=== PATIENT | female | born 1985 | race Caucasian/White ===

== ENCOUNTER 2017-11-08 11:00 | Outpatient (RCR) | payer OTHER, SELFPAY | END 2017-11-08 23:59 | LOC: PT 11:00 | PROVIDERS: Visit Provider Orthopaedic Surgery | DX: S42.409A Unspecified fracture of lower end of unspecified humerus, initial encounter for closed fracture (principal) | CPT/HCPCS: 97010; 97014; 97140; 97161; G0283 ==

== ENCOUNTER 2018-01-24 10:00 | Outpatient (RCR) | payer OTHER, SELFPAY | END 2018-01-24 10:01 | disposition home or self-care (01) | LOC: PT 10:00 | PROVIDERS: Visit Provider Orthopaedic Surgery | DX: S42.401A Unspecified fracture of lower end of right humerus, initial encounter for closed fracture (principal) | CPT/HCPCS: 97010; 97014; 97033; 97110; 97140; 97164; G0283 ==

== ENCOUNTER → 2018-10-12 10:27 | Outpatient (CLI) | payer OTHER, SELFPAY ==
--- NOTE | 2018-10-12 10:37 | XR_ITS ---
XR forearm RT 2V, XR elbow RT min 3V XR hand RT min 3V, XR wrist RT min 3V, Ordering Physician: Sandi Flores Patient Age: 33 years: Female HISTORY: ITS.REASON: RUE PAIN,H/O ELBOW FX TECHNIQUE: Right forearm:: AP lateral Right elbow: AP lateral and oblique Right wrist: AP lateral and oblique Right hand: AP lateral and oblique COMPARISON :None ======= RIGHT ELBOW : Previous ORIF at elbow. Metallic plate applied to the proximal ulna to secured by 5 screws. ( 2 longer screws seen proximally past the olecranon just beneath the the elbow joint.). There is good position and good healing at the proximal ulna. There is also metallic radial head prosthesis placed. Good position. No fracture. The very subtle lucency at its base along the peg noted may benefit follow-up and correlation to any prior outside studies to exclude some early loosening. However may merely reflect some mild resorption immediate adjacent to the prosthesis.. If there if pain here focal at radial head would suggest slight recommend follow-up with orthopedics Upper normal joint fluid at the elbow. Fat pads are within normal limits on lateral elbow image. 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 ======= RIGHT FOREARM: The midshaft and distal radius and ulna intact. Unremarkable. ======= RIGHT WRIST: Right wrist intact with no fracture. Bones well mineralized. No erosions. Joint spaces well-maintained. Carpals satisfactory relationships. Normal fat pad anterior to the wrist. ======= RIGHT HAND Right hand is intact with no fracture nor dislocation. Normal osseous relationships. Bones well mineralized.. Joint spaces well-maintained. No erosions IMPRESSION: ... 1. Right Hand and Right Wrist appears satisfactory, normal & unremarkable. 2. Right elbow. ORIF. ... Metallic plate proximal ulna & with metallic radial head prosthesis. .... Subtle nonspecific lucency about short medullary peg of this radial head prosthesis is noted... Warrants correlation & if focal pain in this region would suggest orthopedic follow-up. ... Suggestion mild early changes at the right elbow joint, most evident lateral 3.. Remainder Right forearm otherwise unremarkable
== END ==
PROVIDERS: PCP Nurse Practitioner Family; Visit Provider Nurse Practitioner Family
DX: S42.401D Unspecified fracture of lower end of right humerus, subsequent encounter for fracture with routine healing; M79.601 Pain in right arm
CPT/HCPCS: 73080; 73090; 73110; 73130

== ENCOUNTER → 2020-10-10 13:41 | Outpatient (CLI) | payer MEDICAID, SELFPAY ==
[2020-10-14 17:59] LABS: Varicella Zoster IgG 287 index (Immune >165)
== END ==
PROVIDERS: Visit Provider Nurse Practitioner Family
DX: Z01.84 Encounter for antibody response examination
CPT/HCPCS: 36415; 86787

== ENCOUNTER 2021-07-04 19:54 | Emergency (ER) | payer MEDICAID, SELFPAY ==
[2021-07-04 21:42] VITALS: BP 146/94; PULSE 74; RESP 12; TEMP 36.6; O2SAT 98; BMI 35.2
--- NOTE | 2021-07-04 22:04 | HMH.EDUTC ---
[facility] [place] Clinical Impression: Bronchitis, Exposure to COVID-19 virus, Viral syndrome Disposition: Home, Self-Care Condition on Discharge: Good Instructions: DI for Acute Bronchitis, DI for COVID-19 (Suspected or Confirmed ), Preventing the Spread of Coronavirus Discharge Instructions Additional Instructions: Drink plenty of fluids. Take tylenol or ibuprofen for pain or fever. Take the medications as directed. Follow up with your regular doctor. GO TO THE ER FOR ANY WORSENING SYMPTOMS Quarantine until you know the results of your covid-19 test. If it is positive, the health department should call you and give you further instructions about your length of Quarantine and other things. Notify your school or workplace of your results and follow their instructions regarding return to work/school. Don't start the oral steroids until tomorrow, since you had the shot here today. Prescriptions: guaiFENesin [Mucinex 600mg tablet] 1 - 2 tab PO BIDP PRN #30 tab.er.12h PRN Reason: Congestion Transmission Status: Received by [facility] predniSONE [Prednisone 20mg Tab] 20 mg PO BID 4 Days #8 tab Transmission Status: Received by [facility] Azithromycin [Z-Francisco J 250mg Tab*] 250 mg PO UD DOSE PK #6 tab Transmission Status: Received by [facility] Referrals: Nohelia Queen APRN [Primary Care Provider] - Time of Disposition: 22:09 Medical Decision Making - Medical Records Medical records reviewed: No: I reviewed the patient's medical records. - Zachery Inquiry Pt receiving controlled substance: No Vital Signs: 07/04/21 21:42 07/04/21 22:10 Temperature 98 F 98 F Temperature Source Oral Pulse Rate 78 Pulse Rate [Left] 74 Respiratory Rate 12 18 Blood Pressure 140/88 Blood Pressure [Right Arm] 146/94 H Blood Pressure Mean [Right Arm] 111 02 Sat by Pulse Oximetry 98 Orders (Tests/Meds): ORDERS Category Date Time Status Covid-19 Nasal PCR ([facility]) Routine Lab 07/04/21 21:45 Received [facility] [place] - General Stated complaint: Cover test,with symsptoms Time Seen by Provider: 07/04/21 22:04 Mode of Arrival: Ambulatory Source of Information: Patient Limitations: No Limitations Description of Symptoms (Recalled from Triage Doc. by RN): PT C/O CHEST CONGESTION, COUGH AND SWOLLEN LYMPH NODES HEENT Symptoms (Recalled from RN notes): No Resp Symptoms (Recalled from RN notes): Yes (CHEST CONGESTION AND COUGH) Skin Symptoms (Recalled from RN notes): No MS Symptoms (Recalled from RN notes): No Functional Status (Recalled from RN notes): NA - History of Present Illness Provider Complaint: She c/o sore throat, cough and feeling bad for the past 3 days. 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 She has similar symptoms as her son at this time. - Related Data Previous Rx's Medication Instructions Recorded Benzonatate [Tessalon Perle 100mg 100 mg PO TID PRN #30 cap 07/12/18 Cap] Fluticasone Propionate [Flonase 2 spr NS DAILY #1 bottle 07/12/18 50mcg nasal spray 16gm] Azithromycin [Z-Francisco J 250mg Tab*] 250 mg PO UD DOSE PK #6 tab 07/04/21 guaiFENesin [Mucinex 600mg tablet] 1 - 2 tab PO BIDP PRN #30 07/04/21 tab.er.12h predniSONE [Prednisone 20mg 20 mg PO BID 4 Days #8 tab 07/04/21 Tab] Allergies Allergy/AdvReac Type Severity Reaction Status Date / Time No Known Allergies Allergy Unverified 10/17/18 09:01 - Worker's Comp Is this a Worker's Comp case?: No [facility] History - Hepatitis A Screen Drug use history?: No High risk sexual behaviors?: No History of sexually transmitted infection?: No Currently employed?: No Childcare worker?: No Do you have indoor plumbing?: Yes Do you have electricity?: Yes Attestation statement:: This patient has been screened for Hepatitis A risk factors. I have reviewed the patient's past medical history: Yes Medical History:
[2021-07-04 22:10] VITALS: BP 140/88; PULSE 78; RESP 18; TEMP 36.6
== END 2021-07-04 22:12 | disposition home or self-care (01) ==
PROVIDERS: Emergency Provider Nurse Practitioner Family; PCP Nurse Practitioner Family
DX: J40 Bronchitis, not specified as acute or chronic; Z20.822 Contact with and (suspected) exposure to COVID-19
CPT/HCPCS: 99202; G0463; U0003

== ENCOUNTER 2021-10-11 09:01 | Emergency (ER) | payer MEDICAID, SELFPAY ==
[2021-10-11 09:17] VITALS: BP 152/84; PULSE 80; RESP 18; TEMP 37.1; O2SAT 99; BMI 36.0
[2021-10-11 09:29] LABS: UTC Strep Screen (Rapid) Positive (Negative)
[2021-10-11 09:38] VITALS: BP 152/84; PULSE 80; RESP 18; TEMP 37.1
--- NOTE | 2021-10-11 09:42 | HMH.EDUTC ---
[facility] [place]: St[place] Disposition: Home, Self-Care Condition on Discharge: Good Instructions: DI for Strep Throat, Strep Throat Additional Instructions: Drink plenty of fluids. Take tylenol or ibuprofen for pain or fever. Take the medications as directed. Follow up with your regular doctor. GO TO THE ER FOR ANY WORSENING SYMPTOMS Throw your tooth brush away and get a new one. Finish the azithromycin pack that you started yesterday. Prescriptions: Brompheniramine/Pseudoephed/Dm [Bromfed Dm Cough Syrup] 5 ml PO Q6HP PRN #240 ml PRN Reason: Cough Transmission Status: Pending to [facility] #[id number] Referrals: Nohelia Queen APRN [Primary Care Provider] - Forms: Work/School Release Time of Disposition: 09:55 Medical Decision Making - Medical Records Medical records reviewed: No: I reviewed the patient's medical records. - Zachery Inquiry Pt receiving controlled substance: No Vital Signs: 10/11/21 09:17 10/11/21 09:38 Temperature 98.7 F 98.7 F Temperature Source Oral Pulse Rate 80 Pulse Rate [Left] 80 Respiratory Rate 18 18 Blood Pressure 152/84 H Blood Pressure [Right Arm] 152/84 H Blood Pressure Mean [Right Arm] 106 02 Sat by Pulse Oximetry 99 - Lab Data Lab results reviewed: Yes: I reviewed the patient's lab results. Lab Results 10/11/21 09:27: Strep Scn [facility] Positive A Orders (Tests/Meds): ED MEDICATIONS Discontinued Medications Generic Name Dose Route Start Last Admin Trade Name Freq PRN Reason Stop Dose Admin Methylprednisolone Sodium Succinate 125 mg 10/11/21 09:42 10/11/21 09:51 Methylprednisolone Sod Succ 125mg Vial IM 10/11/21 09:43 125 mg ONCE ONE Administration Penicillin G Benzathine 1,200,000 unit 10/11/21 09:42 10/11/21 09:46 Penicillin G Benzathine 1,200,000 Units/2ml Syringe IM 10/11/21 09:43 1,200,000 unit ONCE ONE [place] [facility] [place] - General Stated complaint: sore throat Time Seen by Provider: 10/11/21 09:25 Mode of Arrival: Ambulatory Source of Information: Patient Limitations: No Limitations Description of Symptoms (Recalled from Triage Doc. by RN): pt c/o a sore throat, blisters in her throat, and diarrhea. pt states she started a azithromycin yesterday that her grandfather had. pt states she has had diarrhea so bad that her anus is raw and painful. pt wants to know if we can give her something to sooth her anus. HEENT Symptoms (Recalled from RN notes): Yes (sore throat with blisters) Resp Symptoms (Recalled from RN notes): No Skin Symptoms (Recalled from RN notes): No MS Symptoms (Recalled from RN notes): No Functional Status (Recalled from RN notes): wnl - History of Present Illness Provider Complaint: She states that for the past 4 days she has had a sore throat and body aches. She denies any chest congestion or a cough. - Related Data Previous Rx's Medication Instructions Recorded Benzonatate [Tessalon Perle 100mg 100 mg PO TID PRN #30 cap 07/12/18 Cap] Fluticasone Propionate [Flonase 2 spr NS DAILY #1 bottle 07/12/18 50mcg nasal spray 16gm] Azithromycin [Z-Francisco J 250mg Tab*] 250 mg PO UD DOSE PK #6 tab 07/04/21 guaiFENesin [Mucinex 600mg tablet] 1 - 2 tab PO BIDP PRN #30 07/04/21 tab.er.12h predniSONE [Prednisone 20mg 20 mg PO BID 4 Days #8 tab 07/04/21 Tab] Brompheniramine/Pseudoephed/Dm 5 ml PO Q6HP PRN #240 ml 10/11/21 [Bromfed Dm Cough Syrup] Allergies Allergy/AdvReac Type Severity Reaction Status Date / Time No Known Allergies Allergy Unverified 10/17/18 09:01 - Worker's Comp Is this a Worker's Comp case?: No H History - Hepatitis A Screen Drug use history?: No High risk sexual behaviors?: No History of sexually transmitted infection?: No Currently employed?: No Childcare worker?: No Do you have indoor plumbing?: Yes Do you have electricity?: Yes Attestation statement:: This patient has been ms
== END 2021-10-11 10:02 | disposition home or self-care (01) ==
PROVIDERS: Emergency Provider Nurse Practitioner Family; PCP Nurse Practitioner Family
DX: J02.0 Streptococcal pharyngitis (principal)
CPT/HCPCS: 87880; 96372; 99202; G0463; J0561

== ENCOUNTER → 2022-01-18 13:06 | Outpatient (CLI) | payer MEDICAID, SELFPAY ==
--- NOTE | 2022-01-18 13:11 | XR_ITS ---
FINAL REPORT CLINICAL HISTORY: RESPIRATORY CRACKLES AT LT LUNG BASE FINDINGS: Two views of the chest were obtained. The heart size and pulmonary vascularity are within normal limits. The mediastinum is normal. No acute pulmonary abnormality is identified. There is no pneumothorax. The bony thorax is intact. IMPRESSION: No active cardiopulmonary disease. Reviewed, Interpreted and Dictated by Levar Garrido III, MD Transcribed by Nayana Jenkins Authenticated by Levar Garrido III, MD on 01/18/2022 03:00:46 PM [facility]
--- NOTE | 2022-01-18 13:12 | XR_ITS ---
FINAL REPORT CLINICAL HISTORY: ACUTE LT FLANK PAIN FINDINGS: SINGLE VIEW ABDOMEN A single view of the abdomen was obtained. There is a nonobstructive bowel gas pattern. There are no abnormally dilated loops of small bowel. Moderate to large amount of retained stool. No abnormal calcifications are identified. IMPRESSION: Moderate to large amount of retained stool. No renal stone identified. Reviewed, Interpreted and Dictated by Levar Garrido III, MD Transcribed by Nayana Jenkins Authenticated by Levar Garrido III, MD on 01/18/2022 03:00:44 PM [facility]
[2022-01-18 14:28] LABS: Chloride 103 mmol/L (98-107); Sodium 136 mmol/L (136-145)
[2022-01-18 14:29] LABS: Potassium 4.3 mmoL/L (3.5-5.1)
[2022-01-18 14:31] LABS: Alanine Aminotransferase 22 U/L (12-78); Albumin Level 4.7 g/dl (3.5-5.0); Albumin/Globulin Ratio 1.5 (1.1-1.8); Alkaline Phosphatase 77 U/L (38-126); Anion Gap 9.3 mEq/L (5-15); Aspartate Amino Transferase 24 U/L (14-36); Bilirubin,Total 1.2 mg/dl (0.2-1.3); Blood Urea Nitrogen 13 mg/dl (7-17); Calcium 8.3 mg/dl (8.4-10.2); Carbon Dioxide 28 mmol/L (22.0-30.0); Estimated Glomerular Filt Rate 82 ml/min (>60); GFR (African American) 99 ML/MIN (>60); Globulin 3.1 g/dL (1.3-3.2); Glucose 86 mg/dl (74-100); Lipase 53 U/L (23-300); Total Protein,Serum 7.8 g/dl (6.3-8.2)
[2022-01-18 14:32] LABS: Basophils # 0.2 K/mm3 (0-0.2); Eosinophils # 0.2 K/mm3 (0.0-0.4); Eosinophils % 1.7 % (0.1-12.0); Hematocrit 45.4 % (37.0-47.0); Hemoglobin 14.9 g/dL (12.2-16.2); Lymphocytes # 2.8 K/mm3 (0.7-4.5); Mean Corpuscular HGB Conc 32.9 g/dL (31.8-35.4); Mean Corpuscular Hemoglobin 28.9 pg (27.0-31.2); Mean Corpuscular Volume 87.9 fl (81-99); Mean Platelet Volume 7.8 fl (7.4-10.4); Monocytes # 0.6 K/mm3 (0.1-1.0); Monocytes % 5.4 % (1.7-9.3); Neutrophils % 64.9 % (37.0-80.0); Platelet Count 300 K/mm3 (142-424); Red Blood Count 5.17 M/mm3 (4.20-5.40); Red Cell Distribution Width 13.6 % (11.5-17.5); White Blood Count 10.8 K/mm3 (4.8-10.8)
== END ==
PROVIDERS: PCP Nurse Practitioner Family; Visit Provider Nurse Practitioner Family
DX: R10.9 Unspecified abdominal pain (principal); R09.89 Other specified symptoms and signs involving the circulatory and respiratory systems; R53.83 Other fatigue
CPT/HCPCS: 36415; 71046; 74018; 80053; 83690; 85025